=== PATIENT | female | born 1950 | race Caucasian/White ===

== ENCOUNTER 2019-01-04 07:25 | Outpatient (CLI) | payer MEDICARE ==
--- NOTE | 2019-01-04 08:59 | MRI ---
MRI Upper Ext Jt Rt WO Con History: M [age] tear of right rotator cuff unspecified extend Comparison: Shoulder radiographs December 25, 2018 Findings: Biceps tendon: Mild intra-articular tendinosis. No subluxation. Labrum: Tear through the substance of the superior labrum extending into the posterior superior labru m. Also tear to the substance of the anterior inferior labrum. Cartilage: 50-60% cartilage thinning of the humeral head and glenoid without subcortical cysts. Rotator cuff: Low-grade undersurface delamination type tear of the subscapularis. High-grade 50-75% u ndersurface partial tearing of the entire supraspinatus tendon at the footprint with the torn fibers retracted to the mid humeral head. High-grade tendinosis and 25-50% undersurface partial teari ng of infraspinatus tendon. Bones: Type III acromion with undersurface keel osteophyte narrowing the subacromial space. Advanced degenerative disease, clavicular joint. Normal glenoid version. No acute fracture. Muscles: Low-grade edema of the supraspinatus and infraspinous muscles. Soft tissues: Small subacromial/subdeltoid bursa effusion. Impression: 1. Tear through the substance of the superior labrum extending into the posterior superior labrum. Th ere is also tear of the anterior inferior labrum. No displaced labral tissue. Periosteum is intact. 2. High-grade undersurface partial tearing, 50-75%, entire supraspinous tendon at the footprint with the torn retracted fibers to the mid humeral head. 3. Type III acromion narrowing the subacromial space with small subacromial/subdeltoid bursa effusion 4. Mild edema of the supraspinatus and infraspinous muscles likely from high-grade tendon tearing wit hout significant muscle atrophy.
== END 2019-01-04 07:26 | disposition home or self-care (01) ==
LOC: SCSMRI 07:25
PROVIDERS: ATTEND Orthopaedic Surgery
DX: M75.101 Unspecified rotator cuff tear or rupture of right shoulder, not specified as traumatic (principal); M71.811 Other specified bursopathies, right shoulder; R60.0 Localized edema

== ENCOUNTER 2019-12-16 16:28 | Outpatient (CLI) | payer MEDICARE ==
--- NOTE | 2019-12-16 18:59 | RAD ---
PA CHEST LEFT RIBS: History: Fall with injury. FINDINGS: There is deformity of the posterior left 10th rib consistent with mildly displaced fracture. There is also evidence of minimally displaced fracture in the posterior left 9th rib. Ribs otherwise unremarkable. The left lung is well aerated and clear. No pneumothorax. Left CP angle is blunted which could represent tiny effusion or atelectasis. IMPRESSION: Evidence of displaced fracture of the posterior left 10th rib. Mildly displaced fracture of the poste rior left 9th rib. POS: AGW
== END 2019-12-16 16:29 | disposition home or self-care (01) ==
LOC: SCSRAD 16:28
PROVIDERS: ATTEND Family Medicine
DX: S22.42XA Multiple fractures of ribs, left side, initial encounter for closed fracture (principal)

== ENCOUNTER 2020-01-06 09:55 | Outpatient (CLI) | payer MEDICARE ==
--- NOTE | 2020-01-06 10:30 | CT ---
CT BRAIN NONCONTRAST: DATE: 01/06/2020 HISTORY: 69-year-old female status post syncope and fall FINDINGS: There is no evidence of acute intra-axial or extra-axial hemorrhage. There is no midline shift or any other mass effect. There is no extra-axial fluid collection. There is no evidence of obstructive hydrocephalus. Calvarium is intact. There is severe partial opacification of the right maxillary sinu s with polypoid low-attenuation masses which may represent multiple mucus retention cysts or polyps. Similar densities in the right nasal cavity. Moderate to severe partial opacification through out bilateral ethmoid air cells. Frontal sinuses are clear. Much smaller polypoid densities in left maxillary sinus. Bilateral tympanomastoid cavities are clear. Partial opacification of bilateral sphe noid air cells with similar densities. IMPRESSION: 1. No acute intracranial findings. 2. Extensive partial opacification of paranasal sinuses. Multiple mucous retention cysts and/or polyp s.
== END 2020-01-06 09:56 | disposition home or self-care (01) ==
LOC: SCSCT 09:55
PROVIDERS: ATTEND Family Medicine
DX: R55 Syncope and collapse (principal); J34.1 Cyst and mucocele of nose and nasal sinus
CPT/HCPCS: 70450

== ENCOUNTER 2020-02-26 10:29 | Outpatient (CLI) | payer MEDICARE ==
--- NOTE | 2020-02-26 11:18 | ULT ---
Thyroid ultrasound: 02/26/2020 HISTORY: Thyroid nodule TECHNIQUE: Multiplanar grayscale sonographic imaging of the thyroid gland obtained. FINDINGS: Thyroid isthmus measures 1-2 mm in AP dimension. The right lobe measures 2.0 x 1.5 x 4.0 cm and the left lobe measures 1.2 x 0.7 x 3.9 cm. There are multiple small nodules within the right lobe of the thyroid gland measuring up to approxima tely 3-4 mm. These nodules are primarily hypoechoic and may represent small cystic nodules or small solid nodules. Within the left lobe of the thyroid gland there are at least 4 nodules, 3 of which are 6 mm in size o r less. The largest nodule within the left lobe measures 1.0 x 0.6 x 0.5 cm and is hypoechoic, likely solid in nature. IMPRESSION:TI-RADS category 4-moderately suspicious. Given nodule demonstrating size of up to 1 cm, f ollow-up ultrasound advised in one year.
== END 2020-02-26 10:30 | disposition home or self-care (01) ==
LOC: SCSULT 10:29
PROVIDERS: ATTEND Internal Medicine Cardiovascular Disease
DX: E04.1 Nontoxic single thyroid nodule (principal)
CPT/HCPCS: 76536

== ENCOUNTER 2020-09-21 09:16 | Outpatient (CLI) | payer MEDICARE | END 2020-09-21 09:17 | disposition home or self-care (01) | LOC: BICMAMMO 09:16 | PROVIDERS: ATTEND Family Medicine | DX: Z12.31 Encounter for screening mammogram for malignant neoplasm of breast (principal) | CPT/HCPCS: 77063; 77067 ==